=== PATIENT | female | born 1975 | race American Indian/Alaskan Native ===

== ENCOUNTER 2017-02-14 10:01 | Emergency (ER) | payer MEDICARE ==
[2017-02-14 10:17] VITALS: BP 138/88
[2017-02-14 10:46] LABS: Basophils % (Auto) 0.4 % (0.0-1.8); Eosinophils % (Auto) 3.2 % (0.0-4.3); Mean Corpuscular HGB Conc 31 % (30-34); Mean Corpuscular Volume 80 fl (79-97); Platelet Count 288 K/mm3 (140-440); Red Blood Count 4.89 M/mm3 (3.65-5.03); White Blood Count 7.4 K/mm3 (4.5-11.0)
[2017-02-14 10:53] LABS: Hematocrit 39.1 % (30.3-42.9); Mean Corpuscular Hemoglobin 25 pg (28-32)
[2017-02-14 10:56] LABS: Anion Gap 18 mmol/L; BUN/Creatinine Ratio 11.66; Blood Urea Nitrogen 7 mg/dL (7-17); Carbon Dioxide 24 mmol/L (22-30); Chloride 102.9 mmol/L (98-107); Glucose 107 mg/dL (65-100); Potassium 4.6 mmol/L (3.6-5.0); Sodium 140 mmol/L (137-145)
--- NOTE | 2017-02-14 11:11 | Cat Scan Report ---
CT HEAD WITHOUT CONTRAST: HISTORY: Syncope, head injury after fall. No comparison. Large areas of encephalomalacia are identified throughout the left cerebral hemisphere. Chronic infarcts throughout the left LUIS ALBERTO, left OPEN WINDER and most of the left MCA territories is demonstrated. The right cerebral hemisphere is within normal limits. There is moderate volume loss in the posterior fossa. No evidence for hemorrhage, mass, extra-axial fluid collection or large area of acute ischemia. The mastoid air cells and visualized portions of the sinuses are normal. IMPRESSION: No acute intracranial process. Large areas of encephalomalacia throughout the left cerebral hemisphere consistent with chronic ischemic infarcts.
== END 2017-02-14 20:22 | disposition left against medical advice (07) ==
LOC: ED 10:01
DX: R55 Syncope and collapse (principal); R42 Dizziness and giddiness; Z53.21 Procedure and treatment not carried out due to patient leaving prior to being seen by health care provider
CPT/HCPCS: 36415; 70450; 80048; 82962; 84484; 85025; 93005; 93010

== ENCOUNTER 2018-06-01 10:02 | Outpatient (CLI) | payer MEDICARE | END 2018-06-01 10:03 | disposition home or self-care (01) | LOC: LAB 10:02 | PROVIDERS: ATTEND Internal Medicine | DX: J98.4 Other disorders of lung (principal); R06.89 Other abnormalities of breathing; Z90.49 Acquired absence of other specified parts of digestive tract | CPT/HCPCS: 82803 ==